=== PATIENT | male | born 1985 | race Caucasian/White ===

== ENCOUNTER → 2020-04-26 | Outpatient (CLI) | payer BC ==
[~2020-04-26] MED LIST: FLON1SPR; OXYC1TAB23 PO
--- NOTE | 2020-04-26 12:37 | REP ---
Clinical: Epididymal cyst. Comparison: None. Technique: Real time amaya scale and color evaluation using linear high frequency and curved array transducers. Findings: The bilateral testicles and epididymi are relatively normal in appearance and vascularity without intratesticular mass lesion, infectious/inflammatory process, or torsion. 7.5 mm simple right epididymal head cyst and 12 mm simple left epididymal head cysts are noted. No hydrocele. No varicocele. Right testicle measures 5.4 x 2.5 x 3.8 cm. Left testicle measures 5.0 x 2.1 x 3.5 cm. Lateral and superior to the right testicle and epididymis is an extratesticular rounded relatively homogeneous hypoechoic mass lesion measuring 2.5 x 2.5 x 1.9 cm with small peripheral calcification. The appearance suggests a benign mass/tumor and differential diagnosis includes but is not limited to adenomatoid tumor as well as epididymal leiomyoma. Impression: 1. Relatively homogeneous hypoechoic extratesticular mass in the right rell scrotum measures 2.5 cm maximal diameter. Differential diagnosis includes but is not limited to adenomatoid tumor and epididymal leiomyoma as well as focal spermatocele. Electronically Signed by Brian Vaca MD 04/26/2020 12:28 P
== END ==
LOC: M PLAIMG 09:49
PROVIDERS: ATTEND Nurse Practitioner Family
DX: N50.3 Cyst of epididymis (principal)

== ENCOUNTER → 2020-06-05 | Outpatient (CLI) | payer BC | LOC: M LABSMTC 09:57 | PROVIDERS: ATTEND Anesthesiology | DX: Z01.812 Encounter for preprocedural laboratory examination (principal); Z20.828 Contact with and (suspected) exposure to other viral communicable diseases | CPT/HCPCS: C9803; U0003 ==

== ENCOUNTER 2020-06-10 06:05 | Day surgery (SDC) | payer BC ==
[~2020-06-10] VITALS: Ht 170.2 cm; Wt 72.6 kg
[~2020-06-10 06:05] MED LIST changes: +LIDOCAINE 1% MDV 20ML VIAL SQ PRN; +LR 1,000 ML IV ONE; -OXYC1TAB23 PO; +ceFAZolin SOD 2 GM in IV 1 EA IV ONE
[2020-06-10] MEDS ORDERED: LIDOCAINE 1% SDV 30ML VIAL As Ordered ONE (07:12)
[2020-06-10] MEDS ORDERED: BUPIVACAINE HCL 0.25% 30ML VIAL As Ordered ONE (07:12)
[2020-06-10] MEDS ORDERED: BACITRACIN OINTMENT 30GM TUBE As Ordered ONE (07:13)
[2020-06-10] MEDS ORDERED: propofoL 200 MG/20 ML VIAL As Ordered ONE (07:19)
[2020-06-10] MEDS ORDERED: LIDOCAINE 2% 100MG/5ML SDV (FOR ANES.) As Ordered ONE (07:19)
[2020-06-10] MEDS ORDERED: fentaNYL 100 MCG/2 ML INJECTION (J3010) As Ordered ONE (07:19)
[2020-06-10] MEDS ORDERED: MIDAZOLAM INJ 2MG/2ML VIAL (J2250 PER 1MG) As Ordered ONE (07:19)
[2020-06-10] MEDS ORDERED: dexameTHASONE 4 MG/ML 1ML VIAL (J1100 PER 1MG) As Ordered ONE (07:19)
[2020-06-10] MEDS ORDERED: ACETAMINOPHEN 1000MG 100ML IV BTL (OFIRMEV) (J0131 PER 10MG) As Ordered ONE (07:56)
[2020-06-10] MEDS ORDERED: ONDANSETRON 4MG/2ML VIAL As Ordered ONE (08:05)
[2020-06-10] MEDS ORDERED: HYDROmorphone HCL 2 MG/ML 1ML VIAL (J1170) As Ordered ONE (08:29)
[2020-06-10] MEDS ORDERED: OXYC1TAB23 PO (09:26)
[2020-06-10] MEDS ORDERED: PERCOCET 5MG/325MG TAB PO PRN ×2 (10:00)
[2020-06-10] MEDS ORDERED: LR 1,000 ML IV SCH (10:00)
[2020-06-10] MEDS ORDERED: METOCLOPRAMIDE INJ 10MG/2ML VIAL (J2765 PER 1) IV PRN (10:00)
[2020-06-10] MEDS ORDERED: ONDANSETRON 4MG/2ML VIAL IV PRN (10:00)
[2020-06-10] MEDS ORDERED: fentaNYL 100 MCG/2 ML INJECTION (J3010) IV PRN (10:00)
[2020-06-10 11:10] VITALS: BP 115/72
--- NOTE | 2020-06-30 15:34 | RO ---
DATE OF PROCEDURE: 06/10/2020 PRE-PROCEDURE DIAGNOSIS: Right spermatocele. POST-PROCEDURE DIAGNOSIS: Right spermatocele. PROCEDURE: Right spermatocelectomy. SURGEON: Chidi Lua MD HIGHWAY TECHNICIAN: None. ANESTHESIA: General. OPERATIVE INDICATIONS: This is 34-year-old male who was found to have an approximately 2.5-cm round lesion in his right hemiscrotum suspicious for spermatocele. He was brought to the operating room today for treatment. DESCRIPTION OF PROCEDURE: The patient was brought to the operating room and general anesthesia was induced. Prophylactic antibiotics were infused. He was placed in the supine position and prepped and draped in the usual sterile fashion. At this point, an approximately 3-cm transverse incision was made over the right hemiscrotum. The right testicle was then delivered outside of the right hemiscrotum. The tunica vaginalis was opened. The testicle appeared normal. Just proximal to the testicle and in the area of the defect from his previous vasectomy, the cyst was seen. This was carefully dissected out using electrocautery. Once this was down to a small stalk, it was suture ligated with a 2-0 Vicryl suture. The cyst was then transected off of the vas deferens at this point. It was handed off to be sent for pathologic analysis. At this point, the testicle was delivered back inside the right hemiscrotum in its normal anatomic position. Prior to doing that, any areas of bleeding were controlled with electrocautery. The dartos muscle was then closed in a running 3-0 Vicryl sutures. The skin was then closed with interrupted 2-0 chromic sutures. Dressings were then applied. This marked the conclusion of the procedure. The patient was then awakened from anesthesia and transferred to the recovery room in stable condition. ESTIMATED BLOOD LOSS: 5 mL. COMPLICATIONS: None. SPECIMENS: Right spermatocele. PLAN: The patient will follow up in the [facility] in two weeks for a postoperative visit. GIACOMO
== END 2020-06-10 11:30 | disposition home or self-care (01) ==
LOC: M SDC 06:05
PROVIDERS: ATTEND Urology
DX: N43.41 Spermatocele of epididymis, single (principal)
CPT/HCPCS: 54840; 88304; J0131; J1100; J1170; J2250; J2405; J3010